=== PATIENT | male | born 1965 | race African-American/Black ===

== ENCOUNTER 2019-10-04 16:39 | Inpatient (IN) | payer OTHER ==
--- NOTE | 2019-10-04 17:12 | BHS.RME ---
Substance Use & Tx History - Substance Use History Alcohol Substance amount: " too much " Frequency of use: Daily - Last Treatment Date of last treatment: none Physical/Psych/Mental Status - Behavior General Behavior: Increased activity (restlessness, agitation) Eye Contact: Normal - Cooperativeness Cooperativeness: Cooperative - Thinking Thought Processes: Logical - Physical Health Problems Is patient presently having any pain?: Yes (2012 - chronic LBP ) Does patient presently have any injuries (include location): No Does patient currently have a fever: Yes (99.2) CIWA Nausea/Vomitin-No Nausea/No Vomiting Muscle Tremors: 1-None Visible, but [place] Anxiety: 1-Mildly Anxious Agitation: 2 Paroxysmal Sweats: No Perspiration Orientation: 0-Oriented Tacttile Disturbances: 1-Very Mild Itch/Numbness (chronic neuropathy) Auditory Disturbances: 0-None Visual Disturbances: 0-None Headache: 0-None Present CIWA-Ar Total Score: 5
--- NOTE | 2019-10-04 17:16 | HP ---
CIWA Score Nausea/Vomitin-No Nausea/No Vomiting Muscle Tremors: 1-None Visible, but [place] Anxiety: 1-Mildly Anxious Agitation: 2 Paroxysmal Sweats: No Perspiration Orientation: 0-Oriented Tacttile Disturbances: 1-Very Mild Itch/Numbness (chronic neuropathy) Auditory Disturbances: 0-None Visual Disturbances: 0-None Headache: 0-None Present CIWA-Ar Total Score: 5 - Admission Criteria OASAS Guidelines: Admission for Medically Managed Detox: Requires at least one of the followin. CIWA greater than 12 2. Seizures within the past 24 hours 3. Delirium tremens within the past 24 hours 4. Hallucinations within the past 24 hours 5. Acute intervention needed for co occurring medical disorder 6. Acute intervention needed for co occurring psychiatric disorder 7. Severe withdrawal that cannot be handled at a lower level of care (continued vomiting, continued diarrhea, abnormal vital signs) requiring intravenous medication and/or fluids 8. Admission ROS S - HPI Allergies/Adverse Reactions: Allergies Allergy/AdvReac Type Severity Reaction Status Date / Time No Known Allergies Allergy Verified 10/04/19 17:10 History of Present Illness: 54 y.o. male requesting detox from alcohol use , reports rum " a lot " x 4 years , reports daily use , reports tremors if not drinking , denies seizures , latest use today . denies prior tx . tobacco - quit 27 years ago PMHX : HIV on Biktarvy and Bactrim tiw @ [facility] [phone] called , closed at the time of admission . Unable to verify meds. PSHX : denies PSych : denies Exam Limitations: Clinical Condition, Intoxication - Review of Systems Constitutional: Loss of Appetite EENT: reports: No Symptoms Reported, Other (dentures) Respiratory: reports: No Symptoms reported Cardiac: reports: No Symptoms Reported GI: reports: Poor Appetite : reports: No Symptoms Reported Musculoskeletal: reports: Back Pain Integumentary: reports: No Symptoms Reported Neuro: reports: Tremors Endocrine: reports: No Symptoms Reported Psychiatric: reports: Orientated x3, Agitated, Anxious Patient History - Smoking Cessation Smoking history: Former smoker Have you smoked in the past 12 months: No Initiated information on smoking cessation: No - Substances abused Alcohol Substance route: Oral Frequency: Daily Amount used: liquor - 2 pints Age of first use: 50 Date of last use: 10/04/19 Admission Physical Exam S - Physical General Appearance: Yes: Mild Distress, Intoxicated, Tremorous, Anxious HEENTM: Yes: EOMI, Hearing grossly Normal, Normocephalic, Normal Voice Respiratory: Yes: Chest Non-Tender, Lungs Clear, Normal Breath Sounds, No R espiratory Distress, No Accessory Muscle Use Neck: Yes: No masses,lesions,Nodules, Trachea in good position Cardiology: Yes: Regular Rhythm, Regular Rate, S1, S2, Tachycardia Abdominal: Yes: Normal Bowel Sounds, Non Tender, Soft Back: Yes: Normal Inspection Musculoskeletal: Yes: Gait Steady Extremities: Yes: Normal Range of Motion, Non-Tender, Tremors Neurological: Yes: Fully Oriented, Alert, Motor Strength 5/5, Normal Mood/Affect Integumentary: Yes: Warm - Diagnostic (1) Alcohol intoxication Current Visit: Yes Status: Acute Qualifiers: Complication of substance-induced condition: uncomplicated Qualified Code(s): F10.920 - Alcohol use, unspecified with intoxication, uncomplicated Inpatient Rehab Admission - Rehab Decision to Admit Inpatient rehab admission?: No
[2019-10-04] MEDS ORDERED: MAGNESIUM CITRATE 300 ML BOTTLE PO PRN (17:48)
[2019-10-04] MEDS ORDERED: NICOTINE POLACRILEX 2 MG GUM BUC PRN (17:48)
[2019-10-04] MEDS ORDERED: MAG HYDROX/AL HYDROX/SIMETH 30 ML UNIT-DOSE CUP PO PRN (17:48)
[2019-10-04] MEDS ORDERED: BISMUTH SUBSALICYLATE 524 MG/30 ML UD PO PRN (17:48)
[2019-10-04] MEDS ORDERED: MENTHOL/PHENOL 1 EACH UD MM PRN (17:48)
[2019-10-04] MEDS ORDERED: IBUPROFEN 400 MG TABLET (FP) PO PRN (17:48)
[2019-10-04] MEDS ORDERED: ACETAMINOPHEN 325 MG TABLET (FP) PO PRN ×2 (17:48)
[2019-10-04] MEDS ORDERED: MAGNESIUM HYDROX 2400MG/30ML ORAL SUSPENSION 30 ML CUP PO PRN (17:48)
[2019-10-04 18:45] VITALS: BMI 22.5
[2019-10-04] MEDS ORDERED: METOPROLOL TARTRATE 25 MG TABLET (FP) PO ONE (18:56)
[2019-10-04] MEDS: diazePAM 5 MG TABLET PO PRN (20:18)
[2019-10-04] MEDS: THIAMINE HCL 100 MG TABLET (FP) PO SCH (21:52)
[2019-10-04] MEDS: diazePAM 5 MG TABLET PO SCH (21:52)
[2019-10-04] MEDS: MELATONIN 5 MG TABLETS PO PRN (21:53)
[2019-10-05] MEDS: diazePAM 5 MG TABLET PO SCH ×3 (05:24→21:23)
[2019-10-05] MEDS: PRENATAL VITAMINS W/ FOLIC ACID TABLET (FP) PO SCH (10:04)
[2019-10-05] MEDS: diazePAM 5 MG TABLET PO PRN (10:04)
[2019-10-05] MEDS: hydrOXYzine PAMOATE 25 MG CAPSULE (FP) PO PRN ×2 (10:04→21:23)
--- NOTE | 2019-10-05 10:40 | EKG ---
Test Reason : Blood Pressure : / mmHG Vent. Rate : 105 BPM Atrial Rate : 105 BPM P-R Int : 142 ms QRS Dur : 076 ms QT Int : 336 ms P-R-T Axes : 056 009 068 degrees QTc Int : 444 ms SINUS TACHYCARDIA OTHERWISE NORMAL ECG NO PREVIOUS ECGS AVAILABLE Confirmed by Wilbert Heard MD ([id number]) on 10/05/2019 10:39:39 AM Referred By: Confirmed By:Wilbert Heard MD
[2019-10-05 10:46] LABS: HEMATOCRIT 36.9 % (35.4-49); HEMOGLOBIN 12.1 GM/dL (11.7-16.9); MCH 33.4 pg (25.7-33.7); MCHC 32.8 g/dl (32.0-35.9); MEAN CELL VOLUME 101.8 fl (80-96); MEAN PLT VOLUME 10.9 fl (7.5-11.1); PLATELET COUNT 130 K/MM3 (134-434); RBC 3.62 M/mm3 (4.00-5.60); RDW 14.4 % (11.9-15.9); WHITE BLOOD COUNT 3.2 K/mm3 (4.0-10.0)
[2019-10-05 10:57] LABS: BILIRUBIN,TOTAL 0.9 mg/dL (0.2-1); CREATININE 1.1 mg/dL (0.55-1.3); POTASSIUM 3.8 mmol/L (3.5-5.1); TOT PROT 8.4 g/dl (6.4-8.2)
--- NOTE | 2019-10-05 11:08 | PN ---
S CIWA - CIWA Score Nausea/Vomitin-Mild Nausea/No Vomiting Muscle Tremors: 3 Anxiety: 2 Agitation: 1-Slight > Activity Paroxysmal Sweats: 1-Minimal Palms Moist Orientation: 0-Oriented Tacttile Disturbances: 1-Very Mild Itch/Numbness Auditory Disturbances: 0-None Visual Disturbances: 2-Mild Sensitivity Headache: 1-Very Mild CIWA-Ar Total Score: 12 BHS Progress Note (SOAP) Subjective: 54 years old male admitted on 10/04/19 for alcohol withdrawal sx management treating with valium detox regiment feeling ok today ate breakfast resting in bed limited conversation with staff Objective: 10/05/19 11:43 Vital Signs - 24 hr 10/04/19 10/04/19 10/05/19 18:37 19:28 00:44 Temperature 99.3 F 97.8 F Pulse Rate 128 H 109 H Respiratory 18 18 18 Rate Blood Pressure 144/77 120/82 O2 Sat by Pulse Oximetry (%) 10/05/19 10/05/19 10/05/19 03:22 06:12 06:42 Temperature 97.6 F Pulse Rate 98 H Respiratory 18 18 18 Rate Blood Pressure 101/69 O2 Sat by Pulse 98 Oximetry (%) 10/05/19 08:50 Temperature 97.2 F L Pulse Rate 101 H Respiratory 20 Rate Blood Pressure 100/69 O2 Sat by Pulse Oximetry (%) Laboratory Tests 10/05/19 10/05/19 07:50 07:50 WBC 3.2 L RBC 3.62 L Hgb 12.1 Hct 36.9 MCV 101.8 H MCH 33.4 MCHC 32.8 RDW 14.4 Plt Count 130 L MPV 10.9 Sodium 139 Potassium 3.8 Chloride 104 Carbon Dioxide 30 Anion Gap 5 L BUN 11.0 Creatinine 1.1 Est GFR (CKD-EPI)AfAm 88.98 Est GFR (CKD-EPI)NonAf 76.77 Random Glucose 91 Calcium 9.0 Total Bilirubin 0.9 AST 152 H ALT 174 H Alkaline Phosphatase 148 H Total Protein 8.4 H Albumin 3.0 L ast elevation Assessment: 10/05/19 11:44 alcohol withdrawal Plan: valium regiment
[2019-10-05] MEDS: METHOCARBAMOL 500 MG TABLET PO PRN (21:22)
[2019-10-05] MEDS: MELATONIN 5 MG TABLETS PO PRN (21:22)
[2019-10-05] MEDS: THIAMINE HCL 100 MG TABLET (FP) PO SCH (21:22)
[2019-10-06] MEDS: diazePAM 5 MG TABLET PO SCH ×2 (05:44→18:23)
--- NOTE | 2019-10-06 09:57 | PN ---
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 last biktarvy filled on June 2019 encourage mr kim return to infectious disease provider for continuity of care Objective: 10/06/19 10:03 Vital Signs - 24 hr 10/05/19 10/05/19 10/05/19 12:44 16:55 20:49 Temperature 97.1 F L 97.5 F L 97.1 F L Pulse Rate 97 H 108 H 98 H Respiratory 20 16 18 Rate Blood Pressure 107/72 121/82 123/91 O2 Sat by Pulse 96 98 Oximetry (%) 10/06/19 10/06/19 10/06/19 00:26 06:31 08:41 Temperature 97.1 F L 97.5 F L Pulse Rate 93 H 106 H Respiratory 18 18 16 Rate Blood Pressure 112/74 108/69 O2 Sat by Pulse 96 Oximetry (%) Laboratory Tests 10/05/19 10/05/19 10/05/19 07:50 07:50 07:50 WBC 3.2 L RBC 3.62 L Hgb 12.1 Hct 36.9 MCV 101.8 H MCH 33.4 MCHC 32.8 RDW 14.4 Plt Count 130 L MPV 10.9 Sodium 139 Potassium 3.8 Chloride 104 Carbon Dioxide 30 Anion Gap 5 L BUN 11.0 Creatinine 1.1 Est GFR (CKD-EPI)AfAm 88.98 Est GFR (CKD-EPI)NonAf 76.77 Random Glucose 91 Calcium 9.0 Total Bilirubin 0.9 AST 152 H ALT 174 H Alkaline Phosphatase 148 H Total Protein 8.4 H Albumin 3.0 L Syphilis Serology Non-reactive 10/06/19 10:03 ast elevation continue valium regiment low wbc related to hiv status mr kim will follow up with infectious disease provider Assessment: 10/06/19 10:05 alcohol withdrawal hiv Plan: valium regiment biktarvy
[2019-10-06] MEDS: PRENATAL VITAMINS W/ FOLIC ACID TABLET (FP) PO SCH (10:46)
[2019-10-06] MEDS: METHOCARBAMOL 500 MG TABLET PO PRN (21:48)
[2019-10-06] MEDS: THIAMINE HCL 100 MG TABLET (FP) PO SCH (21:48)
[2019-10-06] MEDS: hydrOXYzine PAMOATE 25 MG CAPSULE (FP) PO PRN (21:48)
[2019-10-06] MEDS: MELATONIN 5 MG TABLETS PO PRN (21:49)
[2019-10-06 21:50] VITALS: PULSE 93
[2019-10-07] MEDS ORDERED: diazePAM 5 MG TABLET PO ONE (06:00)
[2019-10-07 06:09] VITALS: BP 108/76; TEMP 98.4
--- NOTE | 2019-10-07 09:21 | DS ---
[facility] Detox Discharge Summary Admission Date: 10/04/19 Discharge Date: 10/07/19 - History Present History: Alcohol Dependence Additional Comments: Valium detox protocol - Physical Exam Results Vital Signs: Vital Signs Temperature 98.4 F 10/07/19 05:01 Pulse Rate 93 H 10/07/19 05:01 Respiratory Rate 18 10/07/19 05:01 Blood Pressure 108/76 10/07/19 05:01 O2 Sat by Pulse Oximetry (%) 100 10/07/19 05:01 Pertinent Admission Physical Exam Findings: PE Gnl: WDWN, in no distress MS: nl Motor: no asymmetry Coord: steady gait, ambulating in hallway Laboratory Tests 10/05/19 10/05/19 10/05/19 07:50 07:50 07:50 WBC 3.2 L RBC 3.62 L Hgb 12.1 Hct 36.9 MCV 101.8 H MCH 33.4 MCHC 32.8 RDW 14.4 Plt Count 130 L MPV 10.9 Sodium 139 Potassium 3.8 Chloride 104 Carbon Dioxide 30 Anion Gap 5 L BUN 11.0 Creatinine 1.1 Est GFR (CKD-EPI)AfAm 88.98 Est GFR (CKD-EPI)NonAf 76.77 Random Glucose 91 Calcium 9.0 Total Bilirubin 0.9 AST 152 H ALT 174 H Alkaline Phosphatase 148 H Total Protein 8.4 H Albumin 3.0 L Syphilis Serology Non-reactive Vital Signs Temperature 98.4 F 10/07/19 05:01 Pulse Rate 93 H 10/07/19 05:01 Respiratory Rate 18 10/07/19 05:01 Blood Pressure 108/76 10/07/19 05:01 O2 Sat by Pulse Oximetry (%) 100 10/07/19 05:01 - Treatment Hospital Course: Detox Protocol Followed, Detoxed Safely, Responded well, Discharged Condition Good Patient has Accepted a Rehab Referral to: Pt going home today - Medication Discharge Medications: Ambulatory Orders Bictegrav/Emtricit/Tenofov Ala [Biktarvy 50-200-25 mg Tablet] 1 each PO DAILY 10/04/19 Sulfamethoxazole/Trimethoprim [Bactrim DS -] 1 tab PO DAILY 10/04/19 - Diagnosis (1) Alcohol dependence with withdrawal, uncomplicated Current Visit: Yes Status: Acute - AMA Did Patient Leave Against Medical Advice: No
== END 2019-10-07 08:41 | disposition home or self-care (01) | DRG 775 ==
LOC: YASAS 16:39 → Y3N 18:37
PROVIDERS: ADMIT Allergy & Immunology; ATTEND Allergy & Immunology
PROC: HZ2ZZZZ Detoxification Services for Substance Abuse Treatment (ICD-10-PCS; principal; 2019-10-04)
DX: F10.230 Alcohol dependence with withdrawal, uncomplicated (principal); F10.220 Alcohol dependence with intoxication, uncomplicated; Z21 Asymptomatic human immunodeficiency virus [HIV] infection status; G62.9 Polyneuropathy, unspecified; R74.0 Nonspecific elevation of levels of transaminase and lactic acid dehydrogenase [LDH]
CPT/HCPCS: 36415; 80053; 85027; 86780; 93005; 93010; U0003